=== PATIENT | female | born 1955 | race African-American/Black ===

== ENCOUNTER 2021-01-24 11:47 | Emergency (ER) | payer MEDICARE ==
[~2021-01-24] VITALS: Ht 165.1 cm; Wt 73.0 kg
[2021-01-24] MEDS ORDERED: ONDANSETRON HCL 4MG/2ML INJ IV STA (11:56)
[2021-01-24 12:38] LABS: BASOPHILS % 1.3 % (0.0-2.0); EOSINOPHILS % 10.3 % (0.0-5.0); HEMATOCRIT. 30.4 % (36.0-48.0); HEMOGLOBIN. 10.2 g/dL (12.0-16.0); LYMPHOCYTES % 10.6 % (20.0-50.0); MEAN CORPUSCULAR HEMOGLOBIN 30.9 pg (28.0-32.0); MEAN CORPUSCULAR VOLUME 92.4 fL (81.0-99.0); MONOCYTES % 8.1 % (2.0-8.0); NEUTROPHILS % 69.7 % (40.0-76.0); PLATELET 122 x1000/uL (130-400); RED BLOOD CELL COUNT 3.29 mill/uL (4.2-5.4); RED CELL DISTRIBUTION WIDTH 15.2 % (11.6-14.6)
[2021-01-24 12:43] LABS: CHLORIDE 105 mEq/L (98-107)
[2021-01-24 13:15] LABS: BG BASE EXCESS -7.8 mmol/L (-2.0-2.0); BG CARBOXYHEMOGLOBIN 0.1 % (0.5-1.5); BG DEOXYHEMOGLOBIN 9.8 % (0.0-5.0); BG FRACTION INSPIRED OXYGEN 21; BG HCO3 ACT 18.2 mmol/L (22.0-26.0); BG METHEMOGLOBIN 0.3 % (0.0-1.5); BG OXYGEN SATURATION 90.2 % (92.0-98.5); BG OXYHEMOGLOBIN 89.8 % (94.0-97.0); BG PCO2 38.9 mmHg (35.0-45.0); BG PH 7.288 (7.350-7.450); BG PO2 68.3 mmHg (75.0-100.0); BG SAMPLE SITE LEFT BRACHIAL; BG TOTAL HEMOGLOBIN 10.5 g/dL (12.0-18.0); BG VENT MODE ROOM AIR
[2021-01-24] MEDS ORDERED: SODIUM BICARBONATE 8.4% 1 MEQ/ML 50ML SYR IV ONE (13:30)
[2021-01-24] MEDS ORDERED: HYDRALAZINE 20MG/ML VIAL IV ONE (22:45)
[2021-01-24 22:53] VITALS: BP 174/76
== END 2021-01-24 23:07 ==
LOC: ER 11:47 → CANBEDREQ 23:25
DX: N17.9 Acute kidney failure, unspecified (principal); I12.0 Hypertensive chronic kidney disease with stage 5 chronic kidney disease or end stage renal disease; E11.22 Type 2 diabetes mellitus with diabetic chronic kidney disease; N18.6 End stage renal disease; E87.2 Acidosis; D64.9 Anemia, unspecified; I45.10 Unspecified right bundle-branch block; Z99.2 Dependence on renal dialysis; Z79.84 Long term (current) use of oral hypoglycemic drugs; Z95.0 Presence of cardiac pacemaker
CPT/HCPCS: 36415; 36600; 71045; 80053; 82375; 82805; 82962; 84484; 85025; 93005; 96374; 96375; 99291; J0360; J2405; J3490; 99283